=== PATIENT | male | born 1950 | race Caucasian/White ===

== ENCOUNTER 2025-03-16 06:38 | Day surgery (SDC) | payer MEDICARE, SELFPAY ==
--- NOTE | 2025-03-16 07:07 | EXP.HP ---
History of Present Illness *Admission Date: 03/16/25 *History of present illness: Mr. Castillo is a 74-year-old gentleman who is here for diagnostic panendoscopy. Sometime ago, he developed constipation. With this, he also has some lower abdominal discomfort. He also has developed nausea over the last 4 months with early satiety and has lost a significant amount of weight. He was at 178 pounds and now is 139 pounds. Looking at food makes him feel sick. He does state that he has had a bowel movement 3 times in the last 3 weeks. His daughter has put him on Dulcolax. He has never had a colonoscopy. His PCP in [place] states that she has some concern for an underlying malignancy because of his weight loss. She recommended EGD and colonoscopy as next step and they were going to schedule this locally. However, the family had brought him to [place] to take care of him and ask if I could see the patient. The patient reports no heartburn, reflux or dysphagia. He does have some minor bloating. He does state that his bowel movements are hard, small caliber and sometimes round balls. He reports no blood or mucus with his bowel movements. He reports no family history of esophageal, gastric or colon cancer. I do not have access to his lab work in [place] but he does state that all of his labs were normal. His CAT scan showed 2 hepatic lesions. He has never had a EGD or colonoscopy. [facility] Disclaimer: The information contained in this section may have been updated after the patient was seen, as this information can be updated by other users. Medical History (Updated 03/16/25 @ 07:10 by Janusz Nolan II, MD) Herniated disc Hyperlipidemia H/O acute myocardial infarction Hypertension Depression Anxiety Surgical History (Updated 03/15/25 @ 09:18 by Lela Randolph MA) H/O lithotripsy Family History (Updated 03/15/25 @ 09:19 by Lela Randolph MA) Other Coronary artery disease Social History (Updated 03/15/25 @ 09:20 by Lela Randolph MA) Smoking Status: Current every day smoker tobacco type: smokeless tobacco alcohol intake: never substance use type: denies use current occupational status: retired Travel in the last 8 weeks?: Inside the [place] Have you lived/traveled outside US in past 30 days?: No Contact w/someone who lives/traveled outside US past 30 days?: No Exposure to someone with infectious disease in past 14 days?: No Do you have a fever (greater than 100.4 F or 38 C)?: No Have you tested positive for COVID-19?: No Exposed to someone with COVID-19 in past 14 days?: No Do you have a sore throat?: No Do you have a cough?: No Do you have any weakness?: No Do you have any diarrhea?: No Are you experiencing any unusual bleeding?: No Do you have any muscle aches/pain?: No Do you have any abdominal pain?: No Are you experiencing loss of taste or smell?: No Other Medical History Have you received the Pneumonia Vaccine: No Review of Systems Review of Systems Review of systems (narrative): Negative *Cardiovascular Comments: Negative *Gastrointestinal Comments: Negative *Genitourinary Comments: Negative *Musculoskeletal Comments: Negative *Neurologic Comments: Negative Meds Home Medications and Allergies Home Medications ?Medication ?Instructions ?Recorded ?Confirmed ?Type bisacodyl 5 mg tablet,delayed 5 mg PO HS PRN 03/15/25 03/15/25 History release (Dulcolax (bisacodyl)) clopidogrel 75 mg tablet 75 mg PO DAILY 03/15/25 03/15/25 History metoclopramide HCl 10 mg tablet 10 mg PO DAILY 03/15/25 03/15/25 History metoprolol succinate 100 mg 100 mg PO ONCE 03/15/25 03/15/25 History tablet,extended release 24 hr ondansetron 4 mg disintegrating 4 mg PO PRN 03/15/25 03/15/25 History tablet ondansetron 8 mg disintegrating 8 mg translingual .Before prep #30 03/15/25 03/15/25 Rx tablet tabs oxycodone-acetaminophen 10 mg-325 1 tab PO Q4-6H PRN 03/15/25 03/15/25 History mg tablet rosuvastatin 40 mg tablet 40 mg PO DAILY 03/15/25 03/15/25 History New Prescriptions to Start Prescriptions: Allergies Allergy/AdvReac Type Severity Reaction Status Date / Time No Known Allergies Allergy Verified 03/15/25 09:12 Exam *Routine HEENT Exam Head: Present normocephalic Eye: Present EOMI and PERRL ENT: Present mucous membranes moist *Routine Neck Exam Neck: Present supple *Routine Respiratory Exam Respiratory: Present CTA bilaterally *Routine Cardiovascular Exam Cardiovascular: Present RRR *Routine Abdominal Exam Abdominal: Present soft and normoactive bowel sounds; Absent tenderness *Routine Rectal Exam Rectal:: deferred *Routine Genitalia Exam Genitalia:: deferred *Routine Extremities Exam Extremities: Absent cyanosis, clubbing or edema *Routine Skin Exam Skin: Present warm; Absent rash *Routine Neurological Exam Neurological: Present alert and oriented X3 Assessment and Plan *Assessment and plan (1) Bilateral lower abdominal discomfort: Status: Acute Category: Medical Code(s): R10.31 - Right lower quadrant pain; R10.32 - Left lower quadrant pain (2) Abnormal weight loss: Status: Acute Category: Medical Code(s): R63.4 - Abnormal weight loss (3) Change in bowel habits: Status: Acute Category: Medical Code(s): R19.4 - Change in bowel habit (4) Constipation: Status: Acute Category: Medical Code(s): K59.00 - Constipation, unspecified (5) Nausea: Status: Acute Category: Medical Code(s): R11.0 - Nausea (6) Lesion of liver: Status: Acute Category: Medical Code(s): K76.9 - Liver disease, unspecified Plan A/P: 1. Abnormal weight loss with bilateral lower abdominal discomfort, abnormal weight loss, change in bowel habits and constipation is the preprocedural diagnosis. The patient also has nausea. The patient did have a CAT scan that showed 2 hepatic lesions. The patient will be anesthetized/sedated using MAC sedation. The patient has been seen and examined. Cardiac and lung assessment prior to the examination is stable. Proceed with planned EGD and colonoscopy.
--- NOTE | 2025-03-16 07:11 | HMH.PROCNOTE ---
[facility] Procedure Note Date: 03/16/25 Time: 07:56 Procedure Note:: Upper Endoscopy Procedure Report: Esophagogastroduodenoscopy with cold biopsies Endoscopost: Janusz Nolan II, MD Referring Physician: None Date of Procedure: March 16, 2025 Equipment: Olympus GIF 190 standard upper endoscope Sedation: MAC sedation Indications: Mr. Castillo is a 74-year-old gentleman who is here for diagnostic panendoscopy. Sometime ago, he developed constipation. With this, he also has some lower abdominal discomfort. He also has developed nausea over the last 4 months with early satiety and has lost a significant amount of weight. He was at 178 pounds and now is 139 pounds. Looking at food makes him feel sick. He does state that he has had a bowel movement 3 times in the last 3 weeks. His daughter has put him on Dulcolax. He has never had a colonoscopy. His PCP in [place] states that she has some concern for an underlying malignancy because of his weight loss. She recommended EGD and colonoscopy as next step and they were going to schedule this locally. However, the family had brought him to [place] to take care of him and ask if I could see the patient. The patient reports no heartburn, reflux or dysphagia. He does have some minor bloating. He does state that his bowel movements are hard, small caliber and sometimes round balls. He reports no blood or mucus with his bowel movements. He reports no family history of esophageal, gastric or colon cancer. I do not have access to his lab work in [place] but he does state that all of his labs were normal. His CAT scan showed 2 hepatic lesions. He has never had a EGD or colonoscopy. Procedure: Prior to the procedure, a history and physical exam was performed, and patient's medications and allergies were reviewed. The risks, benefits and alternatives of the sedation and procedure were discussed with the patient. All questions were answered and informed consent was obtained. The patient was brought to the procedure room. Patient identification and proposed procedure were verified by the physician and the nurse. The patient was placed in a left lateral decubitus position and the scope was passed under direct vision. Throughout the procedure, the patient's blood pressure, pulse, and oxygen saturations were monitored continuously. The upper GI endoscopy was accomplished without difficulty. The patient tolerated the procedure well. Findings: The scope was passed directly into the upper esophagus and advanced to the fourth portion of duodenum and proximal jejunum. A cold biopsy was taken from the proximal jejunum for the disaccharidase assay. The proximal jejunum, post bulbar duodenum, ampulla and duodenal bulb were normal with normal mucosa and conniventes. The scope was withdrawn through a normal duodenal bulb and pylorus into the stomach. There was bile reflux with moderate linear reactive gastropathy of the antrum and body of the stomach. Cold biopsies were taken from the antrum. The fundus of the stomach was normal. Upon retroflexion there was no hiatal hernia. The scope was then withdrawn into the esophagus. There was no evidence of reflux esophagitis or Silverman's. There were tertiary contractions and evidence of mild esophageal dysmotility. The remainder of the esophageal mucosa was normal. Impression: 1. Nonerosive GERD with mild esophageal dysmotility 2. Bile reflux with moderate linear reactive gastropathy Plan: I will follow-up the biopsies. I do feel that some of his dyspepsia and nausea is related to the bile reflux and I will discuss the findings with the patient and family. I will proceed with diagnostic colonoscopy.
[2025-03-16 07:20] VITALS: BMI 21.2
[2025-03-16 07:25] VITALS: BP 131/85; PULSE 93; RESP 18; TEMP 36.3; O2SAT 100
--- NOTE | 2025-03-16 07:37 | P.PCN_ITS ---
[facility] Procedure Note Date: 03/16/25 Time: 08:20 Procedure Note:: Colonoscopy Procedure Report: Colonoscopy with cold snare polypectomy, snare cautery and Endo Clip placement Endoscopist: Janusz Nolan II, MD Referring physician: None Date of Procedure: March 16, 2025 Equipment: Olympus 190 variable stiffness pediatric colonoscope Sedation: MAC sedation Indication: Mr. Castillo is a 74-year-old gentleman who is here for diagnostic panendoscopy. Sometime ago, he developed constipation. With this, he also has some lower abdominal discomfort. He also has developed nausea over the last 4 months with early satiety and has lost a significant amount of weight. He was at 178 pounds and now is 139 pounds. Looking at food makes him feel sick. He does state that he has had a bowel movement 3 times in the last 3 weeks. His daughter has put him on Dulcolax. He has never had a colonoscopy. His PCP in [place] states that she has some concern for an underlying malignancy because of his weight loss. She recommended EGD and colonoscopy as next step and they were going to schedule this locally. However, the family had brought him to [place] to take care of him and ask if I could see the patient. The patient reports no heartburn, reflux or dysphagia. He does have some minor bloating. He does state that his bowel movements are hard, small caliber and sometimes round balls. He reports no blood or mucus with his bowel movements. He reports no family history of esophageal, gastric or colon cancer. I do not have access to his lab work in [place] but he does state that all of his labs were normal. His CAT scan showed 2 hepatic lesions. He has never had a EGD or colonoscopy. Procedure: Prior to the procedure, a history and physical exam was performed, and patient's medications and allergies were reviewed. The risks, benefits and alternatives of the sedation and procedure were discussed with the patient. All questions were answered and informed consent was obtained. The patient was brought to the procedure room. Patient identification and proposed procedure were verified by the physician and the nurse. The patient was placed in a left lateral decubitus position and the scope was passed under direct vision. Throughout the procedure, the patient's blood pressure, pulse, and oxygen saturations were monitored continuously. The colonoscopy was accomplished without difficulty. The patient tolerated the procedure well. Findings: On digital rectal examination there was normal rectal tone. There were no external hemorrhoids. The prostate was 2+, smooth, soft, symmetric without nodules. The colonoscope was introduced through the anal canal to the rectum and advanced to the cecum. The ileocecal valve and appendiceal orifice were identified. The scope was advanced a short distance into the ileum which appeared grossly normal. The scope was then withdrawn into the colon. There were 5 colon polyps (ascending x 2 (3 and 4 mm), transverse x 2 (5 and 5 mm) and sigmoid x 1 (15 to 16 mm)). The smaller polyps were removed via cold snare polypectomy. The larger sigmoid polyp was removed via snare cautery. 2 endoclips were placed over the polypectomy site to provide hemostasis. The remaining cecum, ascending, transverse, descending, sigmoid and rectum were grossly normal. There were no other mucosal abnormalities identified. Upon retroflexion within the rectum there were grade 1-2 internal hemorrhoids. The preparation was excellent throughout with Clark Preparation Score of 9. The cecal time was 15 minutes. Impression: 1. Sigmoid colon polyp (15 to 16 mm) 2. 4 additional diminutive colon polyps 3. Grade 1-2 internal hemorrhoids Plan: I will follow-up the polyp histology and recommend repeat surveillance colonoscopy again in 3 to 5 years. There was no obstructive process within the colon. I am going to place the patient on a fiber bowel regimen (combined MiraLAX plus Citrucel twice daily) and short-term appetite stimulant. I would like to obtain imaging studies from what had been done in [place]. I will also obtain some routine labs today.
--- NOTE | 2025-03-16 07:41 | P.PNANES_ITS ---
[facility] Disclaimer: The information contained in this section may have been updated after the patient was seen, as this information can be updated by other users. Medical History Herniated disc Hyperlipidemia H/O acute myocardial infarction Hypertension Depression Anxiety Surgical History H/O lithotripsy Family History Other Coronary artery disease Social History Smoking Status: Current every day smoker tobacco type: smokeless tobacco alcohol intake: never substance use type: denies use current occupational status: retired Travel in the last 8 weeks?: Inside the [place] Have you lived/traveled outside US in past 30 days?: No Contact w/someone who lives/traveled outside US past 30 days?: No Exposure to someone with infectious disease in past 14 days?: No Do you have a fever (greater than 100.4 F or 38 C)?: No Have you tested positive for COVID-19?: No Exposed to someone with COVID-19 in past 14 days?: No Do you have a sore throat?: No Do you have a cough?: No Do you have any weakness?: No Do you have any diarrhea?: No Are you experiencing any unusual bleeding?: No Do you have any muscle aches/pain?: No Do you have any abdominal pain?: No Are you experiencing loss of taste or smell?: No [facility] Anesthesia Checklist Patient Identification Patient Identification: Verbal (Name & ) Structural Data Admitted From: Home Planned Operative Procedure/s: egd/colonoscopy Consent for Planned Operative Procedure(s) Verified: Yes NPO Status Verified Time NPO: 00:00 Airway Assessment Mallampati Score:: Class II C-Spine Mobility Assessed: Yes TMJ Mobility Assessed: Yes Dentition: Poor Dentition Neurological Assessment Level of Consciousness: Awake, Alert and Appropriate Anesthesia Plan Anesthesia Risk discussed: Yes Anesthesia Plan: Verified ASA Class: II Anesthesia Type: MAC
[2025-03-16 08:23] VITALS: BP 98/49; PULSE 62; RESP 18; TEMP 36.3; O2SAT 100
[2025-03-16 08:33] VITALS: BP 124/66; PULSE 59; RESP 18; O2SAT 100
[2025-03-16 08:46] VITALS: BP 126/84; PULSE 57; RESP 18; O2SAT 99
[2025-03-16 08:53] VITALS: BP 155/95; PULSE 61; RESP 18; TEMP 36.3; O2SAT 99
[2025-03-16 09:18] LABS: Hematocrit 40.2 % (42.0-52.0); Hemoglobin 13.7 g/dL (14.1-18.0); Immature Granulocytes % 0.3 %; Mean Corpuscular HGB Conc 34.1 g/dL (31.8-35.4); Mean Corpuscular Hemoglobin 30.9 pg (27.0-31.2); Mean Corpuscular Volume 90.5 fl (80-94); Nucleated Red Blood Cells % 0 %; Platelet Count 251 K/mm3 (142-424); Red Blood Count 4.44 M/mm3 (4.60-6.20); Red Cell Distribution Width-SD 41.0 fL; White Blood Count 7.0 K/mm3 (4.8-10.8)
[2025-03-16 09:25] VITALS: BP 156/95; PULSE 60; RESP 18; O2SAT 98
[2025-03-16 09:25] LABS: Albumin Level 4.1 g/dl (3.5-5.0); Chloride 110 mmol/L (98-107); Sodium 143 mmol/L (136-145)
[2025-03-16 09:26] LABS: Potassium 5.7 mmoL/L (3.5-5.1)
[2025-03-16 09:28] LABS: Alanine Aminotransferase 26 U/L (12-78); Alkaline Phosphatase 60 U/L (38-126); Anion Gap 11.7 mEq/L (5-15); Aspartate Amino Transferase 31 U/L (17-59); Bilirubin,Total 0.7 mg/dl (0.2-1.3); Blood Urea Nitrogen 9 mg/dl (9-20); Carbon Dioxide 27 mmol/L (22.0-30.0); Creatinine Clearance Estimated 58 mL/min (50-200); Creatinine,Serum 0.90 mg/dl (0.66-1.25); Estimated Glomerular Filt Rate 82 ml/min (>60); GFR (African American) 100 ML/MIN (>60)
[2025-03-16 09:29] LABS: Albumin/Globulin Ratio 1.6 (1.1-1.8); Calcium 9.7 mg/dl (8.4-10.2); Globulin 2.6 g/dL (1.3-3.2); Glucose 99 mg/dl (74-100); Iron 110 ug/dL (49-181); Total Protein,Serum 6.7 g/dl (6.3-8.2)
[2025-03-16 09:38] LABS: Total Iron Binding Capacity 239 ug/dL (261-462)
[2025-03-16 10:06] LABS: Ferritin 222 ng/ml (17.9-464)
[2025-03-16 11:20] LABS: Vitamin B12 627 pg/mL (239-931)
[2025-03-16 12:26] LABS: Folate 18.20 ng/mL
[2025-03-21 14:12] LABS: Interpretation Notes (.); Lactase 30.73 (>/= 14.0); Maltase 295.71 (>/= 110.0); Palatinase 20.56 (>/= 8.5); Reference Notes (.); Sucrase 68.94 (>/= 25.0)
[2025-03-23 05:48] LABS: 1,25 Dihydroxy Vitamin D 44 pg/mL (.); 1,25-Dihydroxy, Vitamin D-2 <10 pg/mL (.); 1,25-Dihydroxy, Vitamin D-3 44 pg/mL (.)
== END 2025-03-16 09:26 | disposition home or self-care (01) ==
PROVIDERS: Visit Provider Internal Medicine Gastroenterology
PROC: 0DJ08ZZ Inspection of Upper Intestinal Tract, Via Natural or Artificial Opening Endoscopic (ICD-10-PCS; CPT 45378; principal; 2025-03-16 08:00)
DX: K31.89 Other diseases of stomach and duodenum (principal); D12.2 Benign neoplasm of ascending colon; D12.3 Benign neoplasm of transverse colon; K63.5 Polyp of colon; K22.4 Dyskinesia of esophagus; K21.9 Gastro-esophageal reflux disease without esophagitis; K64.1 Second degree hemorrhoids; F41.9 Anxiety disorder, unspecified; F32.A Depression, unspecified; F17.290 Nicotine dependence, other tobacco product, uncomplicated; Z79.899 Other long term (current) drug therapy
CPT/HCPCS: 43239; 45385; 36415; 80053; 82607; 82652; 82657; 82728; 82746; 83540; 83550; 85025; 88305; J2003; J2704